=== PATIENT | male | born 1985 | race Caucasian/White ===

== ENCOUNTER → 2024-05-07 09:59 | Outpatient (CLI) | payer OTHER, SELFPAY ==
--- NOTE | 2024-05-07 10:03 | DI.RAD.S_ITS ---
PROCEDURE: XR FOOT LT 2V INDICATIONS: FOOT PAIN TECHNIQUE: Two views of the left foot COMPARISON: None. FINDINGS: Bones: No fractures or dislocations. No suspicious bony lesions. Soft tissues: No tibiotalar joint effusion. Achilles tendon appears normal. IMPRESSION: No evidence of acute osseous abnormality. Dictated by: Clayton Pang M.D. on 05/07/2024 at 15:09 Approved by: Clayton Pang M.D. on 05/07/2024 at 15:10
== END ==
PROVIDERS: Referring Provider Chiropractor; Visit Provider Chiropractor
DX: J45.909 Unspecified asthma, uncomplicated (principal); M13.872 Other specified arthritis, left ankle and foot
CPT/HCPCS: 73620; 94060